=== PATIENT | male | born 1950 | race Caucasian/White ===

== ENCOUNTER 2024-12-15 08:40 | Inpatient (IN) | payer MEDICARE, SELFPAY ==
[2024-12-15 09:44] LABS: INR-International Normal Ratio 1.6
[2024-12-15 09:45] LABS: PTT 37.9 sec (22.9-36.1)
[2024-12-15 09:51] LABS: ALT (SGPT) 79 U/L (Less than 45); AST (SGOT) 68 U/L (11-34); Albumin 2.2 g/dL (3.1-4.5); Alkaline Phosphatase 98 U/L (40-110); Anion Gap 16 mmol/L (10-20); BUN (Urea Nitrogen) 17 mg/dL (8.4-25.7); Bilirubin, Total 1.9 mg/dL (0.3-1.2); Calc. Creatinine Clearance 0 mL/min (70-130); Carbon Dioxide 20 mmol/L (23-31); Chloride 102 mmol/L (98-107); Estimated GFR 99; Globulin 4.2 g/dL (2.4-3.5); Glucose 208 mg/dL (83-110); Potassium 3.9 mmol/L (3.5-5.1); Protein, Total 6.4 g/dL (5.8-8.1); Sodium 134 mmol/L (136-145)
[2024-12-15 10:02] LABS: Troponin I 0.042 ng/mL (< 0.028)
[2024-12-15 10:11] LABS: Band 25 % (5-11); Giant Platelets 1.9 % (0-5); Large Platelets 5.8 % (0-5); Metamyelocyte 11 % (0-0); Microcytosis SLIGHT = 6-15 cells HPF (0-5); Monocytes 2 % (0-10); Myelocyte 1 % (0-0); Neutrophil 59 % (42-75); Platelet Adequacy Comment Platelets Normal; Polychromasia MODERATE = 3-4 cells HPF (0-2); Vacuoles MODERATE
[2024-12-15 10:41] LABS: Hematocrit 38.1 % (42.0-52.0); Hemoglobin 12.5 g/dL (14.0-18.0); Mean Corpuscular HGB CONC 32.8 g/dL (32.0-36.0); Mean Corpuscular Hemoglobin 25.6 pg (27.0-31.0); Mean Corpuscular Volume 78.1 fL (78.0-98.0); Mean Platelet Volume 10.5 fL (7.4-10.4); Platelet Count 353 10x3/uL (130-400); Red Blood Cell (RBC) Count 4.88 mill/uL (4.70-6.10)
[2024-12-15] MEDS ORDERED: Cefepime 2 GM VIAL ONE (11:01)
[2024-12-15] MEDS ORDERED: Sodium Chloride 0.9% 100 ML ONE (11:02)
[2024-12-15] MEDS ORDERED: Vancomycin 1 GM/200 ML (FROZEN) BAG ONE (12:16)
[2024-12-15] MEDS ORDERED: Iopamidol-370 76% 500 ML MDV (1 ML CHARGE) ONE (12:32)
[2024-12-15] MEDS ORDERED: Dextrose 50% Abboject 50 ML SYRINGE SLOW IVP PRN (13:29)
[2024-12-15] MEDS ORDERED: Glucagon 1 MG/ML KIT IM PRN (13:29)
[2024-12-15] MEDS ORDERED: Dextrose 5% in Water 1,000 ML IV PRN (13:29)
[2024-12-15] MEDS ORDERED: Ketorolac Tromethamine 30 MG (1 mL) VIAL IVP PRN (13:29)
[2024-12-15 13:40] LABS: Troponin I 0.047 ng/mL (< 0.028)
[2024-12-15] MEDS ORDERED: HYDROcodone/Acetaminophen 10/325 mg Tablet ONE (15:37)
[2024-12-15] MEDS: HYDROcodone/Acetaminophen 10/325 mg Tablet PO PRN ×2 (15:43→22:48)
[2024-12-15] MEDS: Sodium Chloride 0.9% 1,000 ML IV SCH (16:12)
[2024-12-15] MEDS: Vancomycin 1.5 GRAM/300 ML BAG 1.5 GM in Premix 1 BAG IVPB SCH (17:28)
[2024-12-15] MEDS ORDERED: Acetaminophen 325 MG TAB ONE (18:54)
[2024-12-15] MEDS: Acetaminophen 325 MG TAB PO PRN (18:59)
[2024-12-15] MEDS ORDERED: Vancomycin 1 GM in Sodium Chloride 0.9% 250 ML 250 ML IVPB SCH (21:00)
[2024-12-15] MEDS: Cefepime 2 GM in Sodium Chloride 0.9% 100 ML IVPB SCH (22:42)
[2024-12-15] MEDS: Apixaban 5 MG TAB PO SCH (22:49)
[2024-12-15] MEDS: Famotidine 20 MG TAB PO SCH (22:49)
[2024-12-15 23:23] VITALS: BMI 38.9
[2024-12-16 04:04] LABS: Bacteria/HPF None Seen HPF (None Seen); Bilirubin 1+ (Negative); Blood, Urine 1+ (Negative); CAUTI Indications for Culture Dysuria,urgency,freq; Clarity Clear (Clear); Glucose, Urine (Dipstick) 50 mg/dL (Negative); Ketone, Urine Negative (Negative); Leukocyte Negative Leu/uL (Negative); Nitrite Negative (Negative); Protein, Urine (Dipstick) 100 mg/dL (Neg-Trace); Squamous Epithelial 0-3 HPF (0-3); pH, Urine 6.5 (5.0-9.0)
[2024-12-16 04:06] LABS: Specific Gravity, Urine 1.046 (1.002-1.036); Urine Culture Reflex No No
[2024-12-16 05:58] LABS: Hematocrit 39.2 % (42.0-52.0); Hemoglobin 12.6 g/dL (14.0-18.0); Mean Corpuscular HGB CONC 32.1 g/dL (32.0-36.0); Mean Corpuscular Volume 77.9 fL (78.0-98.0); Mean Platelet Volume 10.6 fL (7.4-10.4); Platelet Count 360 10x3/uL (130-400); RBC Distribution Width 24.5 % (11.5-14.5); Red Blood Cell (RBC) Count 5.03 mill/uL (4.70-6.10)
[2024-12-16] MEDS: Vancomycin (BATCH) 1.75 GM in Premix 1 BAG IVPB SCH (05:59)
[2024-12-16 06:26] LABS: Vancomycin, Random 3.9 ug/mL (See Comment)
[2024-12-16 06:28] LABS: ALT (SGPT) 63 U/L (Less than 45); AST (SGOT) 52 U/L (11-34); Albumin 1.8 g/dL (3.1-4.5); Alkaline Phosphatase 102 U/L (40-110); Anion Gap 12 mmol/L (10-20); BUN (Urea Nitrogen) 17 mg/dL (8.4-25.7); Bilirubin, Total 1.6 mg/dL (0.3-1.2); Calc. Creatinine Clearance 250 mL/min (70-130); Calcium 8.9 mg/dL (7.8-10.44); Carbon Dioxide 22 mmol/L (23-31); Chloride 102 mmol/L (98-107); Estimated GFR 107; Globulin 4.3 g/dL (2.4-3.5); Glucose 152 mg/dL (83-110); Potassium 3.8 mmol/L (3.5-5.1); Protein, Total 6.1 g/dL (5.8-8.1); Sodium 132 mmol/L (136-145)
[2024-12-16 06:37] LABS: Anisocytosis SLIGHT = 6-15 cells HPF (0-5); Band 47 % (5-11); Hypochromia SLIGHT = 6-15 cells HPF (0-5); Lymphocytes 3 % (21-51); Microcytosis SLIGHT = 6-15 cells HPF (0-5); Monocytes 3 % (0-10); Neutrophil 47 % (42-75); Platelet Adequacy Comment Platelets Normal; Polychromasia SLIGHT = 2-3 cells HPF (0-2)
[2024-12-16] MEDS ORDERED: Calcium Carbonate 500 MG ChewTAB PO PRN (16:15)
[2024-12-16] MEDS ORDERED: Bisacodyl 10 MG SUPP PR PRN (16:15)
[2024-12-16] MEDS ORDERED: Piperacillin/Tazobactam 4.5 GM in Sodium Chloride 0.9% 100 ML IVPB SCH (16:15)
[2024-12-16] MEDS: Vancomycin (BATCH) 2 GM in Premix 1 BAG IVPB SCH (17:14)
[2024-12-16] MEDS: Piperacillin/Tazobactam 3.375 GM in Sodium Chloride 0.9% 100 ML IVPB SCH (19:43)
[2024-12-16] MEDS: Gabapentin 400 MG CAP PO SCH (19:47)
[2024-12-16] MEDS: Mirabegron ER 25 MG ER.TAB PO SCH (19:48)
[2024-12-16] MEDS: Cyclobenzaprine 10 MG TAB PO SCH (19:48)
[2024-12-16] MEDS: Atorvastatin Calcium 20 MG TAB PO SCH (19:49)
[2024-12-16] MEDS: Aspirin 81 mg Enteric Coated Tablet PO SCH (19:51)
[2024-12-17 04:06] LABS: #Basophils 0.08 10x3/uL (0.0-0.2); #Eosinophils Less than 0.03 10x3/uL (0.0-0.7); %Basophils 0.4 % (0.0-1.0); %Eosinophils 0.1 % (0.0-10.0); %Lymphocytes 5.2 % (21.0-51.0); %Monocytes 6.3 % (0.0-10.0); Hematocrit 42.8 % (42.0-52.0); Hemoglobin 13.8 g/dL (14.0-18.0); Mean Corpuscular HGB CONC 32.2 g/dL (32.0-36.0); Mean Corpuscular Hemoglobin 25.1 pg (27.0-31.0); Mean Corpuscular Volume 77.8 fL (78.0-98.0); Mean Platelet Volume 10.5 fL (7.4-10.4); Platelet Count 443 10x3/uL (130-400); RBC Distribution Width 24.7 % (11.5-14.5)
[2024-12-17 04:22] LABS: Vancomycin, Random 5.4 ug/mL (See Comment)
[2024-12-17 04:25] LABS: Anion Gap 14 mmol/L (10-20); BUN (Urea Nitrogen) 13 mg/dL (8.4-25.7); Calc. Creatinine Clearance 260 mL/min (70-130); Calcium 9.2 mg/dL (7.8-10.44); Carbon Dioxide 23 mmol/L (23-31); Chloride 101 mmol/L (98-107); Estimated GFR 108; Glucose 155 mg/dL (83-110); Potassium 4.2 mmol/L (3.5-5.1); Sodium 134 mmol/L (136-145)
[2024-12-17] MEDS: Piperacillin/Tazobactam 3.375 GM in Sodium Chloride 0.9% 100 ML IVPB SCH (08:11)
[2024-12-17] MEDS: Azithromycin 500 MG in Sodium Chloride 0.9% 250 ML 250 ML IVPB SCH (11:44)
[2024-12-17 12:54] LABS: Actual Bicarbonate (HCO3a) 25.7 mEq/L (22-28); Base Excess (BEa) 0.4 mEq/L (-2.0 to +3.0); CO2 Tension 43.9 mmHg (35.0-45.0); Calcium, Ionized (arterial) 1.22 mmol/L (1.12-1.30); Carboxyhemoglobin (COHb) 1.2 gm% (0.0-3.0); Hematocrit-ABG 44 % (42.0-52.0); Hemoglobin (Hb) 14.9 g/dL (14.0-18.0); O2 Tension (PaO2), arterial 65.2 mmHg (> 70.0); Potassium - ABG Lab 4.16 mmol/L (3.70-5.30); pH, Arterial 7.386 (7.35-7.45)
[2024-12-17 12:55] LABS: Puncture Site Right Brachial art
[2024-12-17 14:52] LABS: Legionella Urinary Ag Negative (Negative); Strep pneumo Urine Ag NEGATIVE (NEGATIVE)
[2024-12-17] MEDS ORDERED: Vancomycin (BATCH) 2.5 GM in Premix 1 BAG IVPB SCH (16:00)
[2024-12-17] MEDS: Fenofibrate Nanocrystallized 145 MG TAB PO SCH (20:00)
[2024-12-18 04:58] LABS: %Basophils 0.5 % (0.0-1.0); %Eosinophils 0.2 % (0.0-10.0); %Monocytes 8.4 % (0.0-10.0); %Neutrophils 81.7 % (42.0-75.0); Hematocrit 41.7 % (42.0-52.0); Hemoglobin 13.7 g/dL (14.0-18.0); Mean Corpuscular HGB CONC 32.9 g/dL (32.0-36.0); Mean Corpuscular Hemoglobin 25.2 pg (27.0-31.0); Mean Corpuscular Volume 76.7 fL (78.0-98.0); Mean Platelet Volume 10.7 fL (7.4-10.4); Platelet Count 520 10x3/uL (130-400); RBC Distribution Width 25.1 % (11.5-14.5); Red Blood Cell (RBC) Count 5.44 mill/uL (4.70-6.10)
[2024-12-18 05:17] LABS: Anion Gap 16 mmol/L (10-20); BUN (Urea Nitrogen) 13 mg/dL (8.4-25.7); Calc. Creatinine Clearance 270 mL/min (70-130); Carbon Dioxide 25 mmol/L (23-31); Chloride 103 mmol/L (98-107); Estimated GFR 110; Glucose 150 mg/dL (83-110); Potassium 4.2 mmol/L (3.5-5.1); Sodium 140 mmol/L (136-145); Vancomycin, Random 2.5 ug/mL (See Comment)
[2024-12-18] MEDS ORDERED: Vancomycin 1 GM in Premix 1 BAG IVPB SCH (09:30)
[2024-12-18] MEDS: Vancomycin (BATCH) 2 GM in Premix 1 BAG IVPB SCH ×2 (11:24→20:24)
[2024-12-18] MEDS: Insulin Regular, Human 100 UNIT/ML 10 ML VIAL SC PRN (14:20)
[2024-12-19 05:01] LABS: #Basophils 0.13 10x3/uL (0.0-0.2); %Basophils 0.6 % (0.0-1.0); %Eosinophils 0.2 % (0.0-10.0); %Lymphocytes 8.2 % (21.0-51.0); %Monocytes 7.1 % (0.0-10.0); %Neutrophils 79.1 % (42.0-75.0); Hematocrit 39.8 % (42.0-52.0); Hemoglobin 13.1 g/dL (14.0-18.0); Mean Corpuscular HGB CONC 32.9 g/dL (32.0-36.0); Mean Corpuscular Hemoglobin 25.3 pg (27.0-31.0); Mean Platelet Volume 10.8 fL (7.4-10.4); Platelet Count 578 10x3/uL (130-400); RBC Distribution Width 25.3 % (11.5-14.5); Red Blood Cell (RBC) Count 5.17 mill/uL (4.70-6.10)
[2024-12-19 05:09] LABS: Vancomycin, Random 28.1 ug/mL (See Comment)
[2024-12-19 05:10] LABS: Anion Gap 13 mmol/L (10-20); BUN (Urea Nitrogen) 18 mg/dL (8.4-25.7); Calc. Creatinine Clearance 245 mL/min (70-130); Calcium 9.1 mg/dL (7.8-10.44); Carbon Dioxide 26 mmol/L (23-31); Chloride 104 mmol/L (98-107); Estimated GFR 106; Glucose 152 mg/dL (83-110); Potassium 4.1 mmol/L (3.5-5.1); Sodium 139 mmol/L (136-145)
[2024-12-19 05:21] LABS: Band 15 % (5-11); Eosinophils 1 % (0-10); Hypochromia SLIGHT = 6-15 cells HPF (0-5); Lymphocytes 5 % (21-51); Microcytosis SLIGHT = 6-15 cells HPF (0-5); Monocytes 3 % (0-10); Neutrophil 70 % (42-75); Platelet Adequacy Comment Platelets Increased; Polychromasia SLIGHT = 2-3 cells HPF (0-2); Promyelocytes 2 % (0-0); Reactive Lymphocytes 4 % (0-10)
[2024-12-19 11:27] LABS: HBsAg Index 0.53 S/CO (0-0.99); HIV (1/2) Antibody/Antigen NONREACTIVE (NonReactive); HIV 1/2 INDEX 0.07 S/CO (<1.00); Hep B Surf Ag NONREACTIVE S/CO (NonReactive); Hep C IgG Ab NONREACTIVE S/CO (NonReactive); Hep C Index 0.13 S/CO (0-0.79)
[2024-12-19] MEDS: Oxacillin 2 GM in Sodium Chloride 0.9% 100 ML IVPB SCH (12:13)
[2024-12-20 04:45] LABS: %Basophils 0.5 % (0.0-1.0); %Eosinophils 0.4 % (0.0-10.0); %Lymphocytes 9.3 % (21.0-51.0); %Monocytes 6.7 % (0.0-10.0); %Neutrophils 78.4 % (42.0-75.0); Hemoglobin 12.8 g/dL (14.0-18.0); Mean Corpuscular Hemoglobin 24.7 pg (27.0-31.0); Mean Corpuscular Volume 77.1 fL (78.0-98.0); Mean Platelet Volume 10.3 fL (7.4-10.4); Platelet Count 619 10x3/uL (130-400); RBC Distribution Width 25.1 % (11.5-14.5); Red Blood Cell (RBC) Count 5.19 mill/uL (4.70-6.10)
[2024-12-20 05:03] LABS: Anion Gap 13 mmol/L (10-20); BUN (Urea Nitrogen) 14 mg/dL (8.4-25.7); Calc. Creatinine Clearance 282 mL/min (70-130); Calcium 8.6 mg/dL (7.8-10.44); Carbon Dioxide 25 mmol/L (23-31); Chloride 101 mmol/L (98-107); Estimated GFR 111; Glucose 126 mg/dL (83-110); Potassium 4.1 mmol/L (3.5-5.1); Sodium 135 mmol/L (136-145)
[2024-12-20] MEDS ORDERED: Magnevist 469MG/ML 20 ML VIAL ONE (10:26)
[2024-12-20] MEDS: oxyCODONE 5 MG TAB PO SCH (14:39)
[2024-12-20] MEDS ORDERED: Naloxone HCl 0.4 mg/ml Vial IV PRN (17:35)
[2024-12-20] MEDS: Ipratropium/Albuterol 3 ML NEB NEB SCH (20:12)
[2024-12-20] MEDS: Sodium Chloride 0.9% 1,000 ML IV SCH (21:19)
[2024-12-20] MEDS: Metoprolol Tartrate 25 MG TAB PO SCH (21:22)
[2024-12-20 22:36] LABS: Mycoplasma pneumoniae IgG AB 196 U/mL (0-99); Mycoplasma pneumoniae IgM AB Less than 770 U/mL (0-769)
[2024-12-21 04:41] LABS: #Basophils 0.09 10x3/uL (0.0-0.2); %Basophils 0.5 % (0.0-1.0); %Eosinophils 0.4 % (0.0-10.0); %Lymphocytes 6.7 % (21.0-51.0); %Neutrophils 83.4 % (42.0-75.0); Hematocrit 41.2 % (42.0-52.0); Hemoglobin 13.2 g/dL (14.0-18.0); Mean Corpuscular Hemoglobin 25.3 pg (27.0-31.0); Mean Corpuscular Volume 78.9 fL (78.0-98.0); Mean Platelet Volume 10.4 fL (7.4-10.4); Platelet Count 631 10x3/uL (130-400); RBC Distribution Width 24.8 % (11.5-14.5); Red Blood Cell (RBC) Count 5.22 mill/uL (4.70-6.10)
[2024-12-21 04:57] LABS: Anion Gap 15 mmol/L (10-20); BUN (Urea Nitrogen) 17 mg/dL (8.4-25.7); Calc. Creatinine Clearance 270 mL/min (70-130); Calcium 8.8 mg/dL (7.8-10.44); Carbon Dioxide 19 mmol/L (23-31); Chloride 104 mmol/L (98-107); Estimated GFR 110; Glucose 139 mg/dL (83-110); Potassium 4.6 mmol/L (3.5-5.1); Sodium 133 mmol/L (136-145)
[2024-12-21 05:33] LABS: Anisocytosis SLIGHT = 6-15 cells HPF (0-5); Hypochromia SLIGHT = 6-15 cells HPF (0-5); Microcytosis SLIGHT = 6-15 cells HPF (0-5); Platelet Adequacy Comment Platelets Increased; Polychromasia SLIGHT = 2-3 cells HPF (0-2); Spherocytes SLIGHT = 1-5 cells HPF (None Seen)
[2024-12-21] MEDS ORDERED: Iopamidol 370 76% 100 ML VIAL ONE (14:07)
[2024-12-21] MEDS ORDERED: Lidocaine 1% PF 5 ML VIAL ONE (16:30)
[2024-12-21] MEDS ORDERED: PROPOFOL 200 MG/20 ML VIAL ONE (16:30)
[2024-12-22 04:59] LABS: #Basophils 0.06 10x3/uL (0.0-0.2); %Basophils 0.4 % (0.0-1.0); %Eosinophils 0.6 % (0.0-10.0); %Monocytes 6.1 % (0.0-10.0); %Neutrophils 81.5 % (42.0-75.0); Hematocrit 36.8 % (42.0-52.0); Hemoglobin 11.8 g/dL (14.0-18.0); Mean Corpuscular HGB CONC 32.1 g/dL (32.0-36.0); Mean Corpuscular Hemoglobin 25.3 pg (27.0-31.0); Mean Platelet Volume 10.1 fL (7.4-10.4); Platelet Count 671 10x3/uL (130-400); RBC Distribution Width 24.5 % (11.5-14.5); Red Blood Cell (RBC) Count 4.66 mill/uL (4.70-6.10)
[2024-12-22 05:22] LABS: Anion Gap 12 mmol/L (10-20); BUN (Urea Nitrogen) 16 mg/dL (8.4-25.7); Calc. Creatinine Clearance 288 mL/min (70-130); Calcium 8.5 mg/dL (7.8-10.44); Carbon Dioxide 23 mmol/L (23-31); Chloride 103 mmol/L (98-107); Estimated GFR 112; Glucose 140 mg/dL (83-110); Potassium 4.2 mmol/L (3.5-5.1); Sodium 134 mmol/L (136-145)
[2024-12-22 05:37] LABS: Anisocytosis MODERATE=16-30 cells HPF (0-5); Hypochromia SLIGHT = 6-15 cells HPF (0-5); Platelet Adequacy Comment Platelets Increased; Polychromasia SLIGHT = 2-3 cells HPF (0-2); Target Cells SLIGHT = 2-5 cells HPF (0-1)
[2024-12-22] MEDS: Bisacodyl 5 MG TAB PO PRN (11:50)
[2024-12-22 15:46] VITALS: BMI 38.8
[2024-12-23] MEDS: hydrALAZINE 20 MG/ML VIAL SLOW IVP PRN (07:25)
[2024-12-23] MEDS: oxyCODONE ER 10 MG TAB PO SCH ×2 (13:17→22:11)
[2024-12-25 04:08] LABS: #Basophils 0.04 10x3/uL (0.0-0.2); %Basophils 0.3 % (0.0-1.0); %Eosinophils 0.6 % (0.0-10.0); %Lymphocytes 13.5 % (21.0-51.0); %Monocytes 8.9 % (0.0-10.0); %Neutrophils 75.7 % (42.0-75.0); Hematocrit 36.5 % (42.0-52.0); Hemoglobin 11.7 g/dL (14.0-18.0); Mean Corpuscular HGB CONC 32.1 g/dL (32.0-36.0); Mean Corpuscular Hemoglobin 25.8 pg (27.0-31.0); Mean Corpuscular Volume 80.4 fL (78.0-98.0); Mean Platelet Volume 9.9 fL (7.4-10.4); Platelet Count 724 10x3/uL (130-400); RBC Distribution Width 24.2 % (11.5-14.5); Red Blood Cell (RBC) Count 4.54 mill/uL (4.70-6.10)
[2024-12-25 04:30] LABS: Anion Gap 12 mmol/L (10-20); BUN (Urea Nitrogen) 16 mg/dL (8.4-25.7); Calc. Creatinine Clearance 265 mL/min (70-130); Calcium 9.3 mg/dL (7.8-10.44); Carbon Dioxide 25 mmol/L (23-31); Chloride 103 mmol/L (98-107); Estimated GFR 109; Glucose 124 mg/dL (83-110); Potassium 4.7 mmol/L (3.5-5.1); Sodium 135 mmol/L (136-145)
[2024-12-25 04:31] LABS: CRP,High Sensitivity (Inhouse) 8.37 mg/dL (< or = 0.5)
[2024-12-25 04:39] LABS: Anisocytosis SLIGHT = 6-15 cells HPF (0-5); Hypochromia SLIGHT = 6-15 cells HPF (0-5); Microcytosis SLIGHT = 6-15 cells HPF (0-5); Platelet Adequacy Comment Platelets Increased
[2024-12-25] MEDS: Polyethylene Glycol 3350 17 GM Packet PER TUBE SCH (09:48)
[2024-12-25] MEDS: Amlodipine 5 MG TAB PO SCH (17:05)
[2024-12-25] MEDS: Benzocaine/Menthol 1 LOZ LOZ PO PRN (22:49)
[2024-12-26 06:14] LABS: #Basophils 0.05 10x3/uL (0.0-0.2); %Basophils 0.4 % (0.0-1.0); %Eosinophils 0.6 % (0.0-10.0); %Lymphocytes 13.5 % (21.0-51.0); %Monocytes 8.8 % (0.0-10.0); %Neutrophils 76.2 % (42.0-75.0); Hematocrit 36.8 % (42.0-52.0); Hemoglobin 11.9 g/dL (14.0-18.0); Mean Corpuscular HGB CONC 32.3 g/dL (32.0-36.0); Mean Corpuscular Hemoglobin 25.9 pg (27.0-31.0); Mean Platelet Volume 9.7 fL (7.4-10.4); Platelet Count 721 10x3/uL (130-400); RBC Distribution Width 23.6 % (11.5-14.5)
[2024-12-26] MEDS: Amlodipine 5 MG TAB PO SCH (08:39)
[2024-12-26] MEDS ORDERED: Lidocaine 1% PF 5 ML VIAL ONE (11:22)
[2024-12-26] MEDS ORDERED: Sodium Bicarbonate 2.5 MEQ/5 ML SDV ONE (11:22)
[2024-12-26] MEDS ORDERED: Heparin 1,000 UNITS/ML VIAL ONE (11:22)
[2024-12-26] MEDS ORDERED: Sodium Chloride 0.9% 500 ML ONE (11:23)
[2024-12-26] MEDS ORDERED: Iopamidol 30 ML ONE (12:21)
[2024-12-26] MEDS: Ketorolac Tromethamine 30 MG (1 mL) VIAL IVP SCH (13:17)
[2024-12-26] MEDS: CEFAZOLIN 2 GM in Sodium Chloride 0.9% 100 ML IVPB SCH (17:59)
[2024-12-27 08:33] VITALS: BP 151/82; TEMP 97.5
[2024-12-27] MEDS ORDERED: traMADol HCl 50 MG TAB PO PRN (12:07)
[2024-12-27] MEDS: traMADol HCl 50 MG TAB PO SCH (12:12)
[2024-12-27] MEDS: Naloxegol 12.5 MG TAB PO SCH (12:42)
[2024-12-27] MEDS: Lactulose 20 GM (30 mL) UDCUP PO SCH (13:29)
[2024-12-27] MEDS: Bisacodyl 10 MG SUPP PR SCH (13:30)
[2024-12-27] MEDS ORDERED: Lactulose 20 GM (30 mL) UDCUP PO SCH (15:00)
[2024-12-27] MEDS ORDERED: Polyethylene Glycol 3350 17 GM Packet PO SCH (21:00)
[2024-12-28] MEDS ORDERED: Bisacodyl 10 MG SUPP PR SCH (09:00)
== END 2024-12-27 14:08 | DRG 871 ==
LOC: ERS 08:40 → ERHOLD 13:40 → 2NO 21:47 → MSONC 12-18 17:12 → CCU 12-20 19:17 → T4-B 12-24 12:03 → CCU 12-24 12:04 → T4-B 12-24 15:16
PROVIDERS: ADMIT Internal Medicine; ATTEND Family Medicine
PROC: 3E03329 Introduction of Other Anti-infective into Peripheral Vein, Percutaneous Approach (ICD-10-PCS; 2024-12-15)
PROC: 5A09457 Assistance with Respiratory Ventilation, 24-96 Consecutive Hours, Continuous Positive Airway Pressure (ICD-10-PCS; 2024-12-16)
PROC: 4A033R1 Measurement of Arterial Saturation, Peripheral, Percutaneous Approach (ICD-10-PCS; 2024-12-17)
PROC: B245ZZ4 Ultrasonography of Left Heart, Transesophageal (ICD-10-PCS; principal; 2024-12-21)
PROC: 3E04329 Introduction of Other Anti-infective into Central Vein, Percutaneous Approach (ICD-10-PCS; 2024-12-21)
PROC: 02HV33Z Insertion of Infusion Device into Superior Vena Cava, Percutaneous Approach (ICD-10-PCS; 2024-12-26)
PROC: B5181ZA Fluoroscopy of Superior Vena Cava using Low Osmolar Contrast, Guidance (ICD-10-PCS; 2024-12-26)
DX: A41.01 Sepsis due to Methicillin susceptible Staphylococcus aureus (principal); I33.0 Acute and subacute infective endocarditis; J96.01 Acute respiratory failure with hypoxia; J18.9 Pneumonia, unspecified organism; M46.26 Osteomyelitis of vertebra, lumbar region; I5A Non-ischemic myocardial injury (non-traumatic); E78.5 Hyperlipidemia, unspecified; I10 Essential (primary) hypertension; G89.29 Other chronic pain; Z98.890 Other specified postprocedural states; Z90.49 Acquired absence of other specified parts of digestive tract; B95.61 Methicillin susceptible Staphylococcus aureus infection as the cause of diseases classified elsewhere; M46.46 Discitis, unspecified, lumbar region; I48.0 Paroxysmal atrial fibrillation; R53.81 Other malaise; E11.69 Type 2 diabetes mellitus with other specified complication; R33.9 Retention of urine, unspecified; K59.09 Other constipation
CPT/HCPCS: 36415; 36416; 36573; 36600; 70450; 71045; 71275; 72125; 72129; 72132; 72158; 72170; 78306; 80048; 80053; 80202; 81001; 82550; 82805; 83605; 84145; 84484; 85025; 85610; 85730; 86141; 86803; 87040; 87077; 87081; 87149; 87186; 87340; 87389; 87449; 87633; 87899; 93005; 93306; 93312; 94640; 94660; 96365; 96375; A9503; C1751; J0360; J0456; J0692; J1644; J1815; J1885; J2543; J2700; J2704; J3370; J7030; J7050; J7620; Q9967